=== PATIENT | male | born 1955 | race Caucasian/White ===

== ENCOUNTER → 2018-09-05 | Outpatient (CLI) | payer MEDICARE ==
[~2018-09-05] MED LIST: CARDIZEM 30MG T30 MG PO; CARDIZEM CD360 MG PO; FLOMAX 0.40.4 MG/CAP PO; HYZAAR 50-12.1 UDTAB PO
== END ==
LOC: COL.RAD 07:27
DX: Z13.6 Encounter for screening for cardiovascular disorders (principal)

== ENCOUNTER → 2020-03-27 | Outpatient (CLI) | payer MEDICARE, BC, OTHER | LOC: ZCOL.LAB 18:02 | DX: Z20.828 Contact with and (suspected) exposure to other viral communicable diseases (principal); R50.9 Fever, unspecified ==

== ENCOUNTER → 2021-11-15 | Outpatient (CLI) | payer MEDICARE, OTHER, BC | LOC: COL.RAD 07:19 | DX: Z12.2 Encounter for screening for malignant neoplasm of respiratory organs (principal); F17.210 Nicotine dependence, cigarettes, uncomplicated ==

== ENCOUNTER → 2022-12-06 | Outpatient (CLI) | payer MEDICARE, OTHER ==
[~2022-12-06] MED LIST changes: +NORCO 325 MG-51 TAB PO
== END ==
LOC: COL.RAD 13:23
DX: Z12.2 Encounter for screening for malignant neoplasm of respiratory organs (principal); J43.8 Other emphysema; F17.201 Nicotine dependence, unspecified, in remission

== ENCOUNTER → 2023-12-11 | Outpatient (CLI) | payer MEDICARE, OTHER ==
[~2023-12-11] MED LIST changes: +ALLEGRA ALLERG180 MG PO; +ASPIRIN E.C. 8181 MG PO; +COZAAR 50MG50 MG/TAB PO
== END ==
LOC: COL.RAD 08:40
DX: Z12.2 Encounter for screening for malignant neoplasm of respiratory organs (principal); F17.201 Nicotine dependence, unspecified, in remission